=== PATIENT | male | born 1965 | race Caucasian/White ===

== ENCOUNTER 2024-12-01 13:20 | Emergency (ER) | payer BC, SELFPAY ==
[2024-12-01 13:22] VITALS: BP 103/68
--- NOTE | 2024-12-01 14:13 | ED.GENMED ---
History of Present Illness
General
Chief Complaint: Alcohol Problem
Time Seen by Provider: 12/01/24 14:01
History of Present Illness
History of Present Illness:
59-year-old male with history of alcohol abuse presenting for alcohol issues and concern for SI. Patient reports recent discharge from rehab at the end of October. He started drinking again last week with last drink this morning. At home earlier
today he made a comment about a gun so his daughter called the police. On arrival, patient explains that he has had SI, however denies any plan or suicidal intent. He denies any acute medical complaint such as chest pain or difficulty breathing.
He is not interested in going to rehab facility again, has outpatient resources and a sponsor at home. Denies additional acute medical complaints
Phy Exam
Physical Exam
Physical Exam:
General: Well-appearing, no clinical signs of dehydration, nontoxic and in no acute distress
HEENT: protecting airway
Neck: appears supple
CV: Normal heart rate
Resp: No accessory muscle use, no increased work of breathing
Abd: Soft and non-distended, no tenderness to palpation, normal bowel sounds
Extremities: No deformities, no swelling
Neuro: alert, no focal neurologic deficit
: deferred
Rectal: deferred
Psych: Normal affect
Skin: Intact
Scores
Withdrawal Assessment of Alcohol
Withdrawal Assessment Completed?: Not applicable
Course
Orders/Labs/Results
Orders:
Orders
12/01/24 13:27
1:1 Observation - Suicide/ Violent Behavior As Directed
12/01/24 14:11
Crisis Consult Urgent
Reason for Consult: SI
Vital Signs
Initial and Last Documented VS:
Initial Vital Signs
Temp Pulse Resp BP Pulse Ox
97.5 F 98 16 103/68 98
12/01/24 13:22 12/01/24 13:22 12/01/24 13:22 12/01/24 13:22 12/01/24 13:22
Last Documented Vital Signs
Temp Pulse Resp BP Pulse Ox
98.2 F 89 18 137/95 96
12/01/24 22:37 12/01/24 22:37 12/01/24 22:37 12/01/24 22:37 12/01/24 22:37
MDM/Problems Addressed
MDM/Problems Addressed:
59-year-old male with history of alcohol abuse presenting for alcohol issues and SI. Vital signs on arrival are normal.
On exam, patient is well-appearing, resting comfortably, no acute distress. He does not appear clinically intoxicated. He is adamantly denying any present suicidal thoughts or plan. In addition, he does not want any rehabilitation services. Will
have patient seen by crisis, however otherwise at this time no indication for 302. Patient notes that he has outpatient resources for his alcohol addiction. Backup 302 filed by police. Pending crisis evaluation.
*Critical Care Note
Total Time (30-74mins, 75-104mins- exclusive of procedures): Not Applicable
ED Attending Note
-
Portions of this chart may have been created with voice recognition software.� Occasional wrong word or��sound alike� substitutions may have occurred due to the inherent limitations of voice recognition software.
Discharge Plan
Departure
Patient Disposition: Psych Facility
Patient with high blood pressure during this ER visit?: No
Condition: Good
Discharge Problem:
Alcohol abuse
Instructions: Alcohol Use Disorder (DC), Suicide prevention
Referrals:
Lupillo Winkler MD [Family Provider] -
Activity Restrictions/Additional Instructions:
You were seen in the emergency department for alcohol abuse and suicidal thoughts
You denied any suicidal thoughts or intention here. You declined alcohol rehabilitation services.
Please follow-up closely with your primary care physician.
Return to the emergency department for any worsening of your symptoms particularly any thoughts of wanting to hurt yourself or others, or any development of chest pain, difficulty breathing, abdominal pain with persistent vomiting and inability to
tolerate food or liquid by mouth (concern for dehydration), weakness, headache or confusion, fever greater than 100.4, or any additional symptoms that are concerning to you.
Thank you for choosing [facility].
Interventions
Interventions:
*Risk Screen - Suicide Last Done: 12/01/24 13:22
*Neglect/Abuse Screening Last Done: 12/01/24 13:22
ED- Fall Risk Assessment Last Done: 12/01/24 13:58
*ED COVID-19 Vaccine History Last Done: 12/01/24 23:00
*Nursing Disposition Last Done: 12/01/24 23:28
ED- Neurological Assessment Last Done: 12/01/24 13:58
ED-Psychological Assessment Last Done: 12/01/24 22:58
Discharge Date and Time
Discharge Date/Time: 12/01/24 23:28
Print Language: GHANAIAN
[2024-12-01 15:58] VITALS: BP 168/74
[2024-12-01 20:12] VITALS: BP 164/72
[2024-12-01 22:35] VITALS: BMI 23.6
[2024-12-01 22:37] VITALS: BP 137/95
== END 2024-12-01 23:28 ==
LOC: EMR 13:20
PROVIDERS: EMERGENCY PHYSICIAN Student in an Organized Health Care Education/Training Program; FAMILY PHYSICIAN Internal Medicine
DX: F33.2 Major depressive disorder, recurrent severe without psychotic features (principal); F10.20 Alcohol dependence, uncomplicated; K21.9 Gastro-esophageal reflux disease without esophagitis; E78.5 Hyperlipidemia, unspecified; I10 Essential (primary) hypertension; Z79.899 Other long term (current) drug therapy
CPT/HCPCS: 99285